=== PATIENT | female | born 1995 | race Caucasian/White ===

== ENCOUNTER 2018-01-20 12:06 | Emergency (ER) | payer BC, OTHER ==
[2018-01-20] MEDS ORDERED: METOCLOPRAMIDE HCL 10 MG TABLET PO ONE (13:37)
[2018-01-20 14:04] LABS: APPEARANCE,URINE SLIGHTLY-CLOUDY; BILIRUBIN,URINE NEGATIVE (NEGATIVE); COLOR,URINE YELLOW; GLUCOSE, URINE NEGATIVE (NEGATIVE); KETONES,URINE NEGATIVE (NEGATIVE); LEUKOCYTE ESTERASE,URINE TRACE (NEGATIVE); NITRITE,URINE NEGATIVE (NEGATIVE); PROTEIN,URINE NEGATIVE (NEGATIVE); URINE SPECIFIC GRAVITY 1.003; UROBILINOGEN,URINE NEGATIVE mg/dL (<2.0)
--- NOTE | 2018-01-20 14:08 | ER Document Report ---
ED General - General Chief Complaint: Flu Symptoms Stated Complaint: WEAKNESS Time Seen by Provider: 01/20/18 12:53 Mode of Arrival: Ambulatory Information source: Patient Notes: 22-year-old female presents with concerns for dehydration. Patient notes she drank excessively on Sunday and has been feeling nauseous ever since. Patient notes as a result she has not been eating or drinking well. Patient notes she is only vomited one time. Patient denies any abdominal pain denies any fevers or chills or any other life-threatening concerns TRAVEL OUTSIDE OF THE [place] IN LAST 30 DAYS: No - HPI Onset: Other - 3 day duration Onset/Duration: Persistent Quality of pain: No pain Severity: Mild Pain Level: Denies Associated symptoms: Nausea, Vomiting Exacerbated by: Denies Relieved by: Denies Similar symptoms previously: Yes Recently seen / treated by doctor: No - Related Data Allergies/Adverse Reactions: No Known Allergies Allergy (Verified 01/20/18 12:07) Past Medical History - Social History Smoking Status: Never Smoker Cigarette use (# per day): No Chew tobacco use (# tins/day): No Smoking Education Provided: No Family History: Reviewed & Not Pertinent Review of Systems - Review of Systems Notes: REVIEW OF SYSTEMS: CONSTITUTIONAL : Denies fever, chills, or sweats. Denies recent illness. EENT: Denies eye, ear, throat, or mouth pain or symptoms. Denies nasal or sinus congestion or discharge. Denies throat, tongue, or mouth swelling or difficulty swallowing. CARDIOVASCULAR: Denies chest pain. Denies palpitations or racing or irregular heart beat. Denies ankle edema. RESPIRATORY: Denies cough, cold, or chest congestion. Denies shortness of breath, difficulty breathing, or wheezing. GASTROINTESTINAL: Admits to nausea vomiting decreased appetite GENITOURINARY: Denies difficulty urinating, painful urination, burning, frequency, blood in urine, or discharge. FEMALE GENITOURINARY: Denies vaginal bleeding, heavy or abnormal periods, irregular periods. Denies vaginal discharge or odor. MUSCULOSKELETAL: Denies back or neck pain or stiffness. Denies joint pain or swelling. SKIN: Denies rash, lesions or sores. HEMATOLOGIC : Denies easy bruising or bleeding. LYMPHATIC: Denies swollen, enlarged glands. NEUROLOGICAL: Denies confusion or altered mental status. Denies passing out or loss of consciousness. Denies dizziness or lightheadedness. Denies headache. Denies weakness or paralysis or loss of use of either side. Denies problems with gait or speech. Denies sensory loss, numbness, or tingling. Denies seizures. PSYCHIATRIC: Denies anxiety or stress. Denies depression, suicidal ideation, or homicidal ideation. ALL OTHER SYSTEMS REVIEWED AND NEGATIVE. PHYSICAL EXAMINATION: GENERAL: Well-appearing, well-nourished and in no acute distress. HEAD: Atraumatic, normocephalic. EYES: Pupils equal round and reactive to light, extraocular movements intact, conjunctiva are normal. ENT: Nares patent, oropharynx clear without exudates. Moist mucous membranes. NECK: Normal range of motion, supple without lymphadenopathy LUNGS: Breath sounds clear to auscultation bilaterally and equal. No wheezes rales or rhonchi. HEART: Regular rate and rhythm without murmurs ABDOMEN: Soft, nontender, nondistended abdomen. No guarding, no rebound. No masses appreciated. Female : deferred Musculoskeletal: Normal range of motion, no pitting or edema. No cyanosis. NEUROLOGICAL: Cranial nerves grossly intact. Normal speech, normal gait. Normal sensory, motor exams PSYCH: Normal mood, normal affect. SKIN: Warm, Dry, normal turgor, no rashes or lesions noted. Dictation was performed using [email or web address] voice recognition software Physical Exam - Vital signs Vitals: Temp Pulse Resp BP Pulse Ox 98.7 F 84 18 127/82 H 98 01/20/18 12:14 01/20/18 12:14 01/20/18 12:14 01/20/18 12:14 01/20/18 12:14 Course - Re-evaluation Re-evalutation: 01/20/18 15:56 Patient's presentation is quite benign, vital signs are within normal limits, she looks well, I believe her nausea secondary to her alcohol use, she has no tenderness upon palpation, patient was given nausea control was able to orally hydrate. She overall looks well urinalysis noted no infectious process no and no ketones After performing a Medical Screening Examination, I estimate there is LOW risk for ACUTE APPENDICITIS, BOWEL OBSTRUCTION, ACUTE CHOLECYSTITIS, PERFORATED DIVERTICULITIS, INCARCERATED HERNIA, PANCREATITIS, PELVIC INFLAMMATORY DISEASE, PERFORATED ULCER, ECTOPIC , or TUBO- OVARIAN ABSCESS, thus I consider the discharge disposition reasonable. Also, there is no evidence or peritonitis, sepsis, or toxicity. I have reevaluated this patient multiple times and no significant life threatening changes are noted. The patient and I have discussed the diagnosis and risks, and we agree with discharging home with close follow-up with the understanding that symptoms and presentations can change. We also discussed returning to the Emergency Department immediately if new or worsening symptoms occur. We have discussed the symptoms which are most concerning (e.g., bloody stool, fever, changing or worsening pain, vomiting) that necessitate immediate return. - Vital Signs Vital signs: Temp Pulse Resp BP Pulse Ox 98.6 F 61 16 112/66 99 01/20/18 14:17 01/20/18 14:17 01/20/18 14:17 01/20/18 14:17 01/20/18 14:17 - Laboratory Laboratory results interpreted by me: 01/20/18 13:48 Ur Leukocyte Esterase TRACE H Discharge - Discharge Clinical Impression: Dehydration Nausea & vomiting Qualifiers: Vomiting type: unspecified Vomiting Intractability: non-intractable Qualified Code(s): R11.2 - Nausea with vomiting, unspecified Condition: Stable Disposition: HOME, SELF-CARE Instructions: Vomiting ([facility]) Prescriptions: Metoclopramide HCl [Reglan 10 mg Tablet] 1 - 2 tab PO ASDIR PRN #25 tablet PRN Reason:
[2018-01-20 14:19] VITALS: BP 112/66
== END 2018-01-20 14:32 | disposition home or self-care (01) ==
LOC: ER 12:06
DX: R11.2 Nausea with vomiting, unspecified (principal); E86.0 Dehydration; R63.0 Anorexia
CPT/HCPCS: 81001; 81025; 99283

== ENCOUNTER 2018-02-05 09:09 | Emergency (ER) | payer BC ==
[2018-02-05 09:14] VITALS: BP 111/85
[2018-02-05] MEDS ORDERED: DEXAMETHASONE SOD PHOS INJ 10 MG/1 ML VIAL IM ONE (10:03)
[2018-02-05] MEDS ORDERED: IBUPROFEN 800 MG TABLET PO ONE (10:04)
--- NOTE | 2018-02-05 10:07 | ER Document Report ---
ED ENT - General Chief Complaint: Sore Throat Stated Complaint: SORE THROAT Time Seen by Provider: 02/05/18 09:25 Mode of Arrival: Ambulatory Information source: Patient Notes: 23-year-old female presented ED for complaint of fever, runny nose, sore throat , cough, and congestion. She states she has been taken Tylenol. TRAVEL OUTSIDE OF THE [place] IN LAST 30 DAYS: No - HPI Patient complains to provider of: Nose problem, Throat problem Onset: Other Onset/Duration: Gradual Quality of pain: Achy Severity: Moderate Pain Level: 4 Context: Recent Illness Location of pain: Nose, Sinus, Throat Associated symptoms: Chills, Congestion, Cough, Fever, Runny nose, Sinus pain, Sinus drainage, Sore throat Similar symptoms previously: Yes Recently seen / treated by doctor: No - Related Data Allergies/Adverse Reactions: No Known Allergies Allergy (Verified 02/05/18 09:27) Past Medical History - General Information source: Patient - Social History Smoking Status: Current Every Day Smoker Cigarette use (# per day): Yes - Three fourths pack per day Chew tobacco use (# tins/day): No Smoking Education Provided: Yes - 4 minutes Frequency of alcohol use: Social Drug Abuse: None Occupation: Housekeeping Lives with: Family Family History: Arthritis, COPD, DM, Malignancy, Thyroid Disfunction. denies: CAD, CVA, Hyperlipidemia, Hypertension Patient has suicidal ideation: No Patient has homicidal ideation: No - Past Medical History Cardiac Medical History: Reports: None Pulmonary Medical History: Reports: None EENT Medical History: Reports: None Neurological Medical History: Reports: None Endocrine Medical History: Reports: None Renal/ Medical History: Reports: None Malignancy Medical History: Reports: None GI Medical History: Reports: None Musculoskeltal Medical History: Reports None Skin Medical History: Reports None Psychiatric Medical History: Reports: Hx Depression Traumatic Medical History: Reports: None Infectious Medical History: Reports: None Surgical Hx: Negative Past Surgical History: Reports: None - Immunizations Immunizations up to date: Yes Hx Diphtheria, Pertussis, Tetanus Vaccination: Yes Review of Systems - Review of Systems Constitutional: Chills, Fever, Recent illness EENT: Nose congestion, Nose discharge, Sinus pressure, Sinus discharge, Throat pain Cardiovascular: No symptoms reported Respiratory: Cough Gastrointestinal: No symptoms reported Genitourinary: No symptoms reported Female Genitourinary: No symptoms reported Musculoskeletal: No symptoms reported Skin: No symptoms reported Hematologic/Lymphatic: No symptoms reported Neurological/Psychological: No symptoms reported -: Yes All other systems reviewed and negative Physical Exam - Vital signs Vitals: Temp Pulse Resp BP Pulse Ox 99.9 F 116 H 14 111/85 97 02/05/18 09:13 02/05/18 09:13 02/05/18 09:13 02/05/18 09:13 02/05/18 09:13 Interpretation: Tachycardic - 104 - General General appearance: Appears well, Alert - HEENT Head: Normocephalic, Atraumatic Eyes: Normal Pupils: PERRL Ears: Normal External canal: Normal Tympanic membrane: Normal Sinus: Normal Nasal: Purulent discharge, Swelling Mouth/Lips: Normal Mucous membranes: Normal Pharynx: Post nasal drainage Neck: Normal - Respiratory Respiratory status: No respiratory distress Chest status: Nontender Breath sounds: Nonproductive cough. No: Rales, Rhonchi, Stridor, Wheezing Chest palpation: Normal - Cardiovascular Rhythm: Regular Heart sounds: Normal auscultation Murmur: No - Abdominal Inspection: Normal Distension: No distension Bowel sounds: Normal Tenderness: Nontender Organomegaly: No organomegaly - Back Back: Normal, Nontender - Extremities General upper extremity: Normal inspection, Nontender, Normal color, Normal ROM , Normal temperature General lower extremity: Normal inspection, Nontender, Normal color, Normal ROM , Normal temperature, Normal weight bearing. No: Taylor's sign - Neurological Neuro grossly intact: Yes Cognition: Normal Orientation: AAOx4 Marshall Coma Scale Eye Opening: Spontaneous Marshall Coma Scale Verbal: Oriented Marshall Coma Scale Motor: Obeys Commands [place] Coma Scale Total: 15 Speech: Normal Motor strength normal: LUE, RUE, LLE, RLE Sensory: Normal - Psychological Associated symptoms: Normal affect, Normal mood - Skin Skin Temperature: Warm Skin Moisture: Dry Skin Color: Normal Course - Re-evaluation Re-evalutation: 02/05/18 22:00 Assessment consistent with an upper respiratory infection. Patient smokes three fourths pack a day. Temp was 99 pulse was 104. Drip culture was negative. Lungs clear to auscultation respirations regular and even. Patient able to speak in full sentences. Patient was discharged home with instructions on upper respiratory infection treatments. Patient to follow-up with her primary doctor. - Vital Signs Vital signs: Temp Pulse Resp BP Pulse Ox 99.9 F 116 H 14 111/85 97 02/05/18 09:13 02/05/18 09:13 02/05/18 09:13 02/05/18 09:13 02/05/18 09:13 Discharge - Discharge Clinical Impression: Viral sore throat URI (upper respiratory infection) Qualifiers: URI type: unspecified URI Qualified Code(s): J06.9 - Acute upper respiratory infection, unspecified Condition: Stable Disposition: HOME, SELF-CARE Instructions: Family Physicians / Practices Additional Instructions: UPPER RESPIRATORY ILLNESS: You have a viral infection of the respiratory passages -- a "cold." This common infection causes nasal congestion, drainage, and often sore throat and cough. It is highly contagious. The disease usually lasts about 10 to 14 days. There is no "cure" for the viral infection -- it must run its course. If there is a complication, such as bacterial infection in the nose, sinuses, middle ear, or bronchial tubes, antibiotics may be required. The antibiotics won't affect the virus. Drink plenty of fluids. A humidifier may help. An expectorant medication or decongestant may make you more comfortable. Use acetaminophen or ibuprofen for fever or aches. See the doctor if fever persists over two days, if there is any significant worsening of your symptoms, or if you simply fail to improve as expected. SORE THROAT: Sore throats may be caused by viruses, bacteria, or fungi. Most are due to a virus, and must get better on their own. Bacterial sore throats, particularly those due to "strep," need treatment with antibiotics. If an antibiotic is prescribed, be sure to take the medication for a full 10 days. Failure to take the antibiotic can result in complications such as rheumatic fever. Sometimes, an injection of antibiotics is given instead of pills or liquid. This single "shot" is equal in effectiveness to the oral medication. To relieve symptoms, take acetaminophen for pain. Sip clear liquids frequently, or eat popsicles or ice chips. Anesthetic sprays or lozenges may help. Make sure the air in the room is not too dry. Avoid using decongestants or antihistamines. Call the doctor if there is no improvement in two days, or if you have difficulty breathing, increasing throat pain, high fever, rash, or frequent vomiting. STEROID MEDICATION: You have been given a medicine of the cortisone/steroid class. This medication is used to control inflammation or allergy. It is usually only given for a short period of time, until the acute process subsides. There are usually no side effects from short-term use of cortisone-like medications. Some persons feel an increased sense of well-being and are not sleepy at bedtime. Long-term use of cortisone medications is best avoided, unless required for a severe condition. If your condition does not remit, or relapses after the course of corticosteroid medication, you should consult your physician. DECONGESTANT MEDICATION: A decongestant medicine has been prescribed. Often this medicine is combined in the same tablet with an antihistamine or expectorant. This type of medicine is helpful in treating a bad cold or sinus condition, as well as in treatment of the nasal congestion of hay fever. It is not of much benefit for lung infections. Decongestant medicines are related to stimulants. They can cause an increase in blood pressure and heart rate. Persons with heart disease and high blood pressure should not take decongestants without discussing this with the physician. If you develop palpitations, chest pain, headache, or tremors, stop the medicine and consult your physician. COUGH-SUPPRESSANT & EXPECTORANT MEDICATION: You are to use a cough medication as needed for relief of symptoms. This medicine is a combination of an expectorant (to make the mucous thinner and more easily "coughed up") and a cough suppressant (to reduce the frequency of coughing). The cough-suppressant medicine is related to narcotics. You may experience mild nausea and sleepiness. Some patients who are very sensitive to narcotics may have stomach pain from this medicine. Taking the medicine with food reduces these side effects. Do not drive or work with machinery until you know how this medicine affects you. The expectorant should have no side effects. Iodine-containing expectorants (such as organidin) should not be taken by persons with active thyroid disease unless approved by your doctor. Call the doctor if you develop shortness of breath, hives, rash, itching, lightheadedness, or severe nausea and vomiting. USE OF ACETAMINOPHEN (Tylenol): Acetaminophen may be taken for pain relief or fever control. It's much safer than aspirin, offering a wider range of "safe" dosages. It is safe during . Some brand names are Tylenol, Panadol, Datril, Anacin 3, Tempra, and Liquiprin. Acetaminophen can be repeated every four hours. The following are maximum recommended dosages: >89 pounds or adults 650 mg to 900 mg Acetaminophen can be repeated every four hours. Maximum dose not to exceed 4000 mg a day. SMOKING: If you smoke, you should stop smoking. The tar and chemicals in cigarette smoke are harmful. Smoking has been shown to cause: emphysema chronic bronchitis lung cancer mouth and throat cancer stomach and pancreas cancer premature aging defects In addition, smoking increases ear and lung infections in children of smokers. FOLLOW-UP CARE: If you have been referred to a physician for follow-up care, call the physician s office for an appointment as you were instructed or within the next two days. If you experience worsening or a significant change in your symptoms, notify the physician immediately or return to the Emergency Department at any time for re-evaluation. Forms: Smoking Cessation Education, Return to Work
== END 2018-02-05 10:19 | disposition home or self-care (01) ==
LOC: ER 09:09
DX: J02.8 Acute pharyngitis due to other specified organisms (principal); B97.89 Other viral agents as the cause of diseases classified elsewhere; R50.9 Fever, unspecified; R05 Cough; R09.89 Other specified symptoms and signs involving the circulatory and respiratory systems; J34.89 Other specified disorders of nose and nasal sinuses; F17.210 Nicotine dependence, cigarettes, uncomplicated; Z71.6 Tobacco abuse counseling
CPT/HCPCS: 99406; 99283; 96372; 87070; 87880; 87077; J1100

== ENCOUNTER 2018-03-06 08:39 | Emergency (ER) | payer BC ==
[2018-03-06] MEDS ORDERED: ACETAMINOPHEN 325 MG TABLET PO ONE (08:59)
[2018-03-06] MEDS: NORMAL SALINE 1000 ML 1,000 ML IV PRN ×2 (09:18→09:19)
[2018-03-06 09:47] LABS: ANION GAP 10 (5-19); BLOOD UREA NITROGEN 9 mg/dL (7-20); CALCIUM 9.1 mg/dL (8.4-10.2); CARBON DIOXIDE 23 mmol/L (22-30); CHLORIDE 108 mmol/L (98-107); GLUCOSE 114 mg/dL (75-110); POTASSIUM 4.7 mmol/L (3.6-5.0); SODIUM 141.2 mmol/L (137-145)
[2018-03-06 09:51] LABS: ABSOLUTE LYMPHOCYTES (AUTO) 0.7 10^3/uL (0.5-4.7); ABSOLUTE MONOCYTES (AUTO) 1.2 10^3/uL (0.1-1.4); ABSOLUTE NEUT (AUTO) 12.7 10^3/uL (1.7-8.2); BASOPHILS % (AUTO) 0.2 % (0-2); EOSINOPHILS % (AUTO) 0.1 % (0-6); HEMATOCRIT 40.4 % (36.0-47.0); LYMPHOCYTES % (AUTO) 5.1 % (13-45); MEAN CORPUSCULAR HEMOGLOBIN 27.2 pg (27.0-33.4); MEAN CORPUSCULAR HGB CONC 32.1 g/dL (32.0-36.0); MEAN CORPUSCULAR VOLUME 85 fl (80-97); MONOCYTES % (AUTO) 8.2 % (3-13); PLATELET COUNT 231 10^3/uL (150-450); RED BLOOD COUNT 4.77 10^6/uL (3.72-5.28); RED CELL DISTRIBUTION WIDTH 15.3 % (11.5-14.0); SEGMENTED NEUTROPHILS % (AUTO) 86.4 % (42-78); TOTAL CELLS COUNTED % (AUTO) 100 %; WHITE BLOOD COUNT 14.7 10^3/uL (4.0-10.5)
[2018-03-06 10:31] LABS: BACTERIA (WET MOUNT) 3+ BACTERIA SEEN; RBCS (WET MOUNT) NO RBCS SEEN; T.VAGINALIS (WET MOUNT) NO TRICHOMONAS SEEN; WBCS (WET MOUNT) 1+ WBCS SEEN; YEAST (WET MOUNT) NO YEAST SEEN
[2018-03-06 10:45] LABS: APPEARANCE,URINE SLIGHTLY-CLOUDY; BILIRUBIN,URINE NEGATIVE (NEGATIVE); COLOR,URINE YELLOW; GLUCOSE, URINE NEGATIVE (NEGATIVE); KETONES,URINE NEGATIVE (NEGATIVE); LEUKOCYTE ESTERASE,URINE LARGE (NEGATIVE); NITRITE,URINE NEGATIVE (NEGATIVE); PROTEIN,URINE NEGATIVE (NEGATIVE)
[2018-03-06] MEDS ORDERED: CEFTRIAXONE 1 GM/D5W RTU 1 GM/50 ML RTUPB IV ONE (11:03)
[2018-03-06] MEDS ORDERED: METRONIDAZOLE 500 MG TABLET PO ONE (11:04)
[2018-03-06] MEDS ORDERED: AZITHROMYCIN 1 GM SUSP PACKET PO ONE (11:04)
--- NOTE | 2018-03-06 11:30 | ER Document Report ---
ED General - General Chief Complaint: Vaginal Discharge Stated Complaint: SORE THROAT Time Seen by Provider: 03/06/18 08:59 TRAVEL OUTSIDE OF THE [place] IN LAST 30 DAYS: No - HPI Patient complains to provider of: Fevers muscle aches vaginal discharge sore throat Notes: Patient coming in for the above-stated complaints. Patient states she is sexually active with multiple partners. Patient denies having socially transmitted diseases in the past. Denies any normal pain mother states some dysuria. Patient states she has not been taking Tylenol Motrin because her throat hurts too much. Denies any recent travel denies any recent antibiotics. Patient resting comfortably upon my evaluation - Related Data Allergies/Adverse Reactions: No Known Allergies Allergy (Verified 03/06/18 09:25) Past Medical History - Social History Smoking Status: Current Every Day Smoker Frequency of alcohol use: None Drug Abuse: None Family History: Arthritis, COPD, DM, Malignancy, Thyroid Disfunction. denies: CAD, CVA, Hyperlipidemia, Hypertension Patient has suicidal ideation: No Patient has homicidal ideation: No Renal/ Medical History: Denies: Hx Peritoneal Dialysis Psychiatric Medical History: Reports: Hx Depression - Immunizations Immunizations up to date: Yes Hx Diphtheria, Pertussis, Tetanus Vaccination: Yes Review of Systems - Review of Systems Constitutional: Fever, Other - Myalgias EENT: No symptoms reported Cardiovascular: No symptoms reported Respiratory: No symptoms reported Gastrointestinal: No symptoms reported Genitourinary: No symptoms reported Female Genitourinary: Vaginal discharge Musculoskeletal: No symptoms reported Skin: No symptoms reported Hematologic/Lymphatic: No symptoms reported Neurological/Psychological: No symptoms reported -: Yes All other systems reviewed and negative Physical Exam - Vital signs Vitals: Temp Pulse Resp BP Pulse Ox 103.1 F H 133 H 16 126/72 H 96 03/06/18 08:43 03/06/18 08:43 03/06/18 08:43 03/06/18 08:43 03/06/18 08:43 Interpretation: Tachycardic, Febrile - General General appearance: Appears well, Alert - HEENT Head: Normocephalic, Atraumatic Eyes: Normal Conjunctiva: Normal Cornea: Normal Pupils: PERRL Ears: Normal External canal: Normal Tympanic membrane: Normal Sinus: Normal Nasal: Normal Mouth/Lips: Normal Pharynx: Erythema Neck: Normal - Respiratory Respiratory status: No respiratory distress Chest status: Nontender Breath sounds: Normal Chest palpation: Normal - Cardiovascular Rhythm: Regular Heart sounds: Normal auscultation Murmur: No - Abdominal Inspection: Normal Distension: No distension Bowel sounds: Normal Tenderness: Nontender Organomegaly: No organomegaly - Genitourinary External exam: Normal Speculum exam: Vaginal discharge - White moderate amount Vaginal bleeding: None Bimanuel exam: Normal. No: Cervical motion tender, Adnexal mass, Adnexal tenderness - Back Back: Normal, Nontender - Extremities General upper extremity: Normal inspection, Nontender, Normal color, Normal ROM , Normal temperature General lower extremity: Normal inspection, Nontender, Normal color, Normal ROM , Normal temperature, Normal weight bearing. No: Taylor's sign - Neurological Neuro grossly intact: Yes Cognition: Normal Orientation: AAOx4 [place] Coma Scale Eye Opening: Spontaneous [place] Coma Scale Verbal: Oriented [place] Coma Scale Motor: Obeys Commands [place] Coma Scale Total: 15 Speech: Normal Motor strength normal: LUE, RUE, LLE, RLE Sensory: Normal - Psychological Associated symptoms: Normal affect, Normal mood - Skin Skin Temperature: Warm Skin Moisture: Dry Skin Color: Normal Course - Re-evaluation Re-evalutation: 03/06/18 14:26 Patient with fever slight leukocytosis with vaginal discharge showing bacterial vaginosis. Patient requested treatment for gonorrhea chlamydia therefore we did Rocephin and Zithromax and 2 g of Flagyl for treatment. Heart rate improved after IV fluids along with fever. Patient feeling better concerning is a patient does have large leukocyte esterase with dysuria will start the patient on Macrobid urine culture was sent. Patient otherwise is negative for mono negative for strep no signs of any other concerning etiology patient will be discharged home - Vital Signs Vital signs: Temp Pulse Resp BP Pulse Ox 103.1 F H 133 H 22 H 110/66 98 03/06/18 08:43 03/06/18 08:43 03/06/18 12:01 03/06/18 12:01 03/06/18 12:01 - Laboratory Result Diagrams: 03/06/18 09:28 03/06/18 09:20 Laboratory results interpreted by me: 03/06/18 03/06/18 03/06/18 09:20 09:28 10:18 WBC 14.7 H RDW 15.3 H Seg Neutrophils % 86.4 H Lymphocytes % 5.1 L Absolute Neutrophils 12.7 H Chloride 108 H Glucose 114 H Urine Urobilinogen 4.0 H Ur Leukocyte Esterase LARGE H Discharge - Discharge Clinical Impression: Bacterial vaginosis, Dehydration, Sore throat Fever Qualifiers: Fever type: unspecified Qualified Code(s): R50.9 - Fever, unspecified UTI (urinary tract infection) Qualifiers: Urinary tract infection type: site unspecified Hematuria presence: without hematuria Qualified Code(s): N39.0 - Urinary tract infection, site not specified Condition: Good Disposition: HOME, SELF-CARE Instructions: Nitrofurantoin ([facility]), Sore Throat ([facility]), Urinary Tract Infection ([facility]), Vaginosis, Bacterial ([facility]) Additional Instructions: Your evaluation today 2 signs of dehydration. Your throat swabs returned negative for strep and mono. Laboratory studies show signs of urinary tract infection along with bacterial vaginosis. Your gonorrhea chlamydia testing is currently pending however we did treat you here with Rocephin and also azithromycin. I highly recommend abstaining from sex for the next 2 weeks. Continues to take Tylenol and/or Motrin for fever and pain control. Return to ER if symptoms worse. Take Macrobid as prescribed for urinary tract infection. Prescriptions: Ibuprofen [Motrin 600 Mg Tablet] 600 mg PO TID #30 tablet Nitrofurantoin Macrocrystal [Macrodantin] 100 mg PO BID #14 capsule Ondansetron [Zofran Odt] 4 mg PO Q6 PRN #30 tab.rapdis PRN Reason: For Nausea/Vomiting Forms: Return to Work
[2018-03-06 12:03] LABS: CHLAM PCR NOT DETECTED (NOT DETECT); GON PCR NOT DETECTED (NOT DETECT)
[2018-03-06 12:17] VITALS: BP 110/66
[2018-03-06] MEDS ORDERED: CEFTRIAXONE SODIUM 1,000 MG in NORMAL SALINE 100 ML IV ONE (12:30)
== END 2018-03-06 12:17 | disposition home or self-care (01) ==
LOC: ER 08:39
DX: N39.0 Urinary tract infection, site not specified (principal); N76.0 Acute vaginitis; B96.89 Other specified bacterial agents as the cause of diseases classified elsewhere; E86.0 Dehydration; R50.9 Fever, unspecified; J02.9 Acute pharyngitis, unspecified; M79.1 Myalgia; F17.200 Nicotine dependence, unspecified, uncomplicated
CPT/HCPCS: 99283; 96361; 96365; 36415; 87070; 87086; 87210; 87880; 85025; 81025; 86308; 80048; 81001; 87491; 87591; Q0144; J0696; J7030

== ENCOUNTER 2018-12-19 18:54 | Emergency (ER) | payer SELFPAY ==
--- NOTE | 2018-12-19 21:51 | ER Document Report ---
ED General - General Chief Complaint: Suicidal Ideation Stated Complaint: PSYCH EVAL Time Seen by Provider: 12/19/18 20:30 Primary Care Provider: [facility] [Provider Group] - Follow up as needed SINCERE MUNIZ MD [NO LOCAL MD] - Follow up as needed Notes: This is a 23-year-old female patient to the emergency department for evaluation of anxiety and depression. Patient denies any active suicidal ideation. Patient states that she has had long-standing history of anxiety. Recently moved back home to live with her mom as she was kicked out of her house in [place]. Has 2 children. Has struggled with anxiety since she was a child. Currently not on medications. Does not have any thoughts at this time of wanting to hurt herself but sometimes feels that life is not worth living just due to all the anxiety. She has physical symptoms which are tachycardia, palm sweating and facial flushing. Beginning to have more [place] phobia. Feels like most of her symptoms come out when she is around people. All she wants to do is sleep all day because it is safer than going out in public. TRAVEL OUTSIDE OF THE [place] IN LAST 30 DAYS: No - HPI Severity: Moderate - Related Data Allergies/Adverse Reactions: No Known Allergies Allergy (Verified 03/06/18 09:25) Past Medical History - General Information source: Patient - Social History Smoking Status: Current Every Day Smoker Frequency of alcohol use: None Drug Abuse: None Family History: Arthritis, COPD, DM, Malignancy, Thyroid Disfunction. denies: CAD, CVA, Hyperlipidemia, Hypertension Patient has suicidal ideation: No Patient has homicidal ideation: No Renal/ Medical History: Denies: Hx Peritoneal Dialysis Psychiatric Medical History: Reports: Hx Anxiety, Hx Depression - Immunizations Immunizations up to date: Yes Hx Diphtheria, Pertussis, Tetanus Vaccination: Yes Review of Systems - Review of Systems Notes: Constitutional: denies: Chills, Diaphoresis, Fever, Malaise, Weakness EENT: denies: Eye discharge, Blurred vision, Tearing, Double vision, Nose congestion, Nose discharge, Throat swelling, Mouth pain Cardiovascular: denies: Palpitations, Heart racing, Orthopnea, Dyspnea, Chest pain Respiratory: denies: Cough, Hurts to breathe, Wheezing, Shortness of breath Gastrointestinal: denies: Abdominal pain, Diarrhea, Nausea, Vomiting, Black stools, bright red blood in stool Genitourinary: denies: Burning, Dysuria, Discharge, Frequency, Flank pain, Hematuria Musculoskeletal: denies: Joint pain, Joint swelling, Muscle pain, Muscle stiffness, back pain Hematologic/Lymphatic: denies: Anemia, Easy bleeding, Easy bruising, Blood clots Neurological/Psychological: denies: Confusion, Dementia, +Depression, Loss of consciousness, + anxiety Skin: No lesions, no masses, no skin breakdown, no abscesses Physical Exam - Vital signs Vitals: Temp Pulse Resp BP Pulse Ox 98.6 F 116 H 14 122/76 100 12/19/18 19:03 12/19/18 19:03 12/19/18 19:03 12/19/18 19:03 12/19/18 19:03 Interpretation: Normal - General General appearance: Appears well, Alert - HEENT Head: Normocephalic, Atraumatic Eyes: Normal Pupils: PERRL - Respiratory Respiratory status: No respiratory distress Chest status: Nontender Breath sounds: Normal Chest palpation: Normal - Cardiovascular Rhythm: Regular Heart sounds: Normal auscultation Murmur: No - Abdominal Inspection: Normal Distension: No distension Bowel sounds: Normal Tenderness: Nontender Organomegaly: No organomegaly - Back Back: Normal, Nontender - Extremities General upper extremity: Normal inspection, Nontender, Normal color, Normal ROM, Normal temperature General lower extremity: Normal inspection, Nontender, Normal color, Normal ROM, Normal temperature, Normal weight bearing. No: Taylor's sign - Neurological Neuro grossly intact: Yes Cognition: Normal Orientation: AAOx4 [place] Coma Scale Eye Opening: Spontaneous [place] Coma Scale Verbal: Oriented [place] Coma Scale Motor: Obeys Commands [place] Coma Scale Total: 15 Speech: Normal Motor strength normal: LUE, RUE, LLE, RLE Sensory: Normal - Psychological Associated symptoms: Normal affect, Normal mood - Skin Skin Temperature: Warm Skin Moisture: Dry Skin Color: Normal Course - Re-evaluation Re-evalutation: 12/19/18 22:59 Laboratory 12/19/18 12/19/18 12/19/18 20:30 20:30 20:30 WBC 11.0 H RBC 4.94 Hgb 14.3 Hct 42.6 MCV 86 MCH 29.0 MCHC 33.7 RDW 13.8 Plt Count 328 Seg Neutrophils % 75.0 Lymphocytes % 18.4 Monocytes % 5.8 Eosinophils % 0.4 Basophils % 0.4 Absolute Neutrophils 8.2 Absolute Lymphocytes 2.0 Absolute Monocytes 0.6 Absolute Eosinophils 0.0 Absolute Basophils 0.0 Sodium 143.3 Potassium 4.8 Chloride 103 Carbon Dioxide 29 Anion Gap 11 BUN 8 Creatinine 0.62 Est GFR ( Amer) > 60 Est GFR (Non-Af Amer) > 60 Glucose 92 Calcium 9.9 Total Bilirubin 0.5 Direct Bilirubin 0.3 Neonat Total Bilirubin Not Reportable Neonat Direct Bilirubin Not Reportable Neonat Indirect Bili Not Reportable AST 18 ALT 9 Alkaline Phosphatase 118 Total Protein 8.4 H Albumin 4.8 TSH Free T4 Free T3 pg/mL Serum HCG, Qual NEGATIVE Urine Color Urine Appearance Urine pH Ur Specific [place] Urine Protein Urine Glucose (UA) Urine Ketones Urine Blood Urine Nitrite Urine Bilirubin Urine Urobilinogen Ur Leukocyte Esterase Urine WBC (Auto) Urine RBC (Auto) Urine Bacteria (Auto) Squamous Epi Cells Auto Urine Mucus (Auto) Urine Ascorbic Acid Salicylates < 1.0 L Urine Opiates Screen Urine Methadone Screen Acetaminophen < 10 L Ur Barbiturates Screen Ur Phencyclidine Scrn Ur Amphetamines Screen U Benzodiazepines Scrn Urine Cocaine Screen U Marijuana (THC) Screen Serum Alcohol < 10 12/19/18 12/19/18 12/19/18 20:30 20:30 20:30 WBC RBC Hgb Hct MCV MCH MCHC RDW Plt Count Seg Neutrophils % Lymphocytes % Monocytes % Eosinophils % Basophils % Absolute Neutrophils Absolute Lymphocytes Absolute Monocytes Absolute Eosinophils Absolute Basophils Sodium Potassium Chloride Carbon Dioxide Anion Gap BUN Creatinine Est GFR ( Amer) Est GFR (Non-Af Amer) Glucose Calcium Total Bilirubin Direct Bilirubin Neonat Total Bilirubin Neonat Direct Bilirubin Neonat Indirect Bili AST ALT Alkaline Phosphatase Total Protein Albumin TSH 1.28 Free T4 1.02 Free T3 pg/mL 3.72 Serum HCG, Qual Urine Color COLORLESS Urine Appearance CLEAR Urine pH 8.0 Ur Specific [place] 1.004 Urine Protein NEGATIVE Urine Glucose (UA) NEGATIVE Urine Ketones NEGATIVE Urine Blood NEGATIVE Urine Nitrite NEGATIVE Urine Bilirubin NEGATIVE Urine Urobilinogen NEGATIVE Ur Leukocyte Esterase TRACE H Urine WBC (Auto) 1 Urine RBC (Auto) 0 Urine Bacteria (Auto) 2+ Squamous Epi Cells Auto 1 Urine Mucus (Auto) RARE Urine Ascorbic Acid NEGATIVE Salicylates Urine Opiates Screen NEGATIVE Urine Methadone Screen NEGATIVE Acetaminophen Ur Barbiturates Screen NEGATIVE Ur Phencyclidine Scrn NEGATIVE Ur Amphetamines Screen NEGATIVE U Benzodiazepines Scrn NEGATIVE Urine Cocaine Screen NEGATIVE U Marijuana (THC) Screen NEGATIVE Serum Alcohol 12/19/18 23:00 This is a 23-year-old female no acute distress with some anxiety disorder and depression. She has struggled with this for most of her life. We had a long discussion with regards to her condition. At this time most of her anxiety stems from her physical manifestations of her anxiety which includes tachycardia and blushing. I have explained to her how a beta-jaqueline can sometimes help. This will help to control some of her physical symptoms and may help to suad viate the subsequent anxiety symptoms. She is also suffering some depression which coincides with her anxiety. She has been on psychiatric medications in the past. She has tried BuSpar but it seemed to make her anxiety worse. More than likely if this is true. I do not believe she is suicidal. She has no active suicide plan. She has no passive suicidal ideation she just feels like at times when the anxiety is so bad that was the point in living. She has a known recent stressor. Has moved here to live with her mom and her children are in [place]. Recent divorce. Obvious stressors in her life. Does have access to healthcare. Patient would like to go home. Mother is comfortable with this as well. Will DC in stable condition and recommend outpatient follow-up. - Vital Signs Vital signs: Temp Pulse Resp BP Pulse Ox 98.2 F 106 H 20 110/73 100 12/19/18 23:29 12/19/18 23:29 12/19/18 23:29 12/19/18 23:29 12/19/18 23:29 - Laboratory Result Diagrams: 12/19/18 20:30 12/19/18 20:30 Laboratory results interpreted by me: 12/19/18 12/19/18 12/19/18 20:30 20:30 20:30 WBC 11.0 H Total Protein 8.4 H Ur Leukocyte Esterase TRACE H Salicylates < 1.0 L Acetaminophen < 10 L - EKG Interpretation by Ma EKG shows normal: Sinus rhythm, Chapman, Intervals, QRS Complexes, ST-T Waves Discharge - Discharge Clinical Impression: Anxiety Depression Qualifiers: Depression Type: unspecified Qualified Code(s): F32.9 - Major depressive disorder, single episode, unspecified Condition: Good Disposition: HOME, SELF-CARE Instructions: Anxiety ([facility]), Beta Blockers ([facility]), Depression ([facility]) Prescriptions: Clonazepam 0.5 mg PO QHS 30 Days #30 tablet Propranolol HCl [Inderal 20 mg Tablet] 20 mg PO Q12 PRN 30 Days #60 tab PRN Reason: Referrals: SINCERE MUNIZ MD [NO LOCAL MD] - Follow up as needed [facility] [Provider Group] - Follow up as needed
[2018-12-19 22:00] LABS: ABSOLUTE MONOCYTES (AUTO) 0.6 10^3/uL (0.1-1.4); ABSOLUTE NEUT (AUTO) 8.2 10^3/uL (1.7-8.2); BASOPHILS % (AUTO) 0.4 % (0-2); EOSINOPHILS % (AUTO) 0.4 % (0-6); HEMATOCRIT 42.6 % (36.0-47.0); HEMOGLOBIN 14.3 g/dL (12.0-15.5); LYMPHOCYTES % (AUTO) 18.4 % (13-45); MEAN CORPUSCULAR HGB CONC 33.7 g/dL (32.0-36.0); MEAN CORPUSCULAR VOLUME 86 fl (80-97); MONOCYTES % (AUTO) 5.8 % (3-13); PLATELET COUNT 328 10^3/uL (150-450); RED BLOOD COUNT 4.94 10^6/uL (3.72-5.28); RED CELL DISTRIBUTION WIDTH 13.8 % (11.5-14.0); TOTAL CELLS COUNTED % (AUTO) 100 %
[2018-12-19 22:04] LABS: APPEARANCE,URINE CLEAR; BILIRUBIN,URINE NEGATIVE (NEGATIVE); COLOR,URINE COLORLESS; GLUCOSE, URINE NEGATIVE (NEGATIVE); KETONES,URINE NEGATIVE (NEGATIVE); LEUKOCYTE ESTERASE,URINE TRACE (NEGATIVE); NITRITE,URINE NEGATIVE (NEGATIVE); PROTEIN,URINE NEGATIVE (NEGATIVE); URINE SPECIFIC GRAVITY 1.004; UROBILINOGEN,URINE NEGATIVE mg/dL (<2.0)
[2018-12-19 22:06] LABS: ALANINE AMINOTRANSFERASE 9 U/L (9-52); ALBUMIN 4.8 g/dL (3.5-5.0); ALKALINE PHOSPHATASE 118 U/L (38-126); ANION GAP 11 (5-19); ASPARTATE AMINO TRANSFERASE 18 U/L (14-36); BILIRUBIN,DIRECT 0.3 mg/dL (0.0-0.4); BILIRUBIN,TOTAL 0.5 mg/dL (0.2-1.3); BLOOD UREA NITROGEN 8 mg/dL (7-20); CALCIUM 9.9 mg/dL (8.4-10.2); CARBON DIOXIDE 29 mmol/L (22-30); CHLORIDE 103 mmol/L (98-107); GLUCOSE 92 mg/dL (75-110); POTASSIUM 4.8 mmol/L (3.6-5.0); SODIUM 143.3 mmol/L (137-145); TOTAL PROTEIN 8.4 g/dL (6.3-8.2)
[2018-12-19 22:07] LABS: ACETAMINOPHEN < 10 ug/mL (10-30); ALCOHOL < 10 mg/dL (NONE DETECTED); SALICYLATE < 1.0 mg/dL (2.0-20.0)
[2018-12-19 22:17] LABS: URINE AMPHETAMINES SCREEN NEGATIVE; URINE BARBITURATES SCREEN NEGATIVE; URINE BENZODIAZEPINES SCREEN NEGATIVE; URINE COCAINE SCREEN NEGATIVE; URINE MARIJUANA (THC) SCREEN NEGATIVE; URINE METHADONE SCREEN NEGATIVE; URINE PHENCYCLIDINE SCREEN NEGATIVE
[2018-12-19 22:22] LABS: FREE T3 3.72 pg/mL (2.77-5.27); FREE T4 (FREE THYROXINE) 1.02 ng/dL (0.78-2.19)
[2018-12-19 22:36] LABS: THYROID STIMULATING HORMONE 1.28 uIU/mL (0.47-4.68)
[2018-12-19] MEDS ORDERED: CLONAZEPAM 1 MG TABLET PO ONE (23:05)
[2018-12-19 23:52] VITALS: BP 110/73
--- NOTE | 2018-12-20 08:01 | EKG REPORT ---
SEVERITY:- NORMAL ECG - SINUS RHYTHM : Confirmed by: Fareed Thompson MD 20-Dec-2018 08:00:27
== END 2018-12-19 23:52 | disposition home or self-care (01) ==
LOC: ER 18:54
DX: F41.9 Anxiety disorder, unspecified (principal); F32.9 Major depressive disorder, single episode, unspecified; R00.0 Tachycardia, unspecified; R61 Generalized hyperhidrosis; R23.2 Flushing; F17.200 Nicotine dependence, unspecified, uncomplicated; Z63.5 Disruption of family by separation and divorce
CPT/HCPCS: 36415; 80053; 80307; 81001; 84439; 84443; 84481; 84703; 85025; 93005; 93010; 99285

== ENCOUNTER 2018-12-22 16:07 | Emergency (ER) | payer MEDICAID ==
[2018-12-22 17:03] LABS: BACTERIA (WET MOUNT) 3+ BACTERIA SEEN; EPITHELIALS (WET MOUNT) 3+ EPITHELIALS SEEN; RBCS (WET MOUNT) FEW RBCS SEEN; T.VAGINALIS (WET MOUNT) NO TRICHOMONAS SEEN; WBCS (WET MOUNT) 2+ WBCS SEEN; YEAST (WET MOUNT) NO YEAST SEEN
[2018-12-22 17:04] LABS: APPEARANCE,URINE CLEAR; BILIRUBIN,URINE NEGATIVE (NEGATIVE); COLOR,URINE STRAW; GLUCOSE, URINE NEGATIVE (NEGATIVE); KETONES,URINE NEGATIVE (NEGATIVE); LEUKOCYTE ESTERASE,URINE NEGATIVE (NEGATIVE); NITRITE,URINE NEGATIVE (NEGATIVE); PROTEIN,URINE NEGATIVE (NEGATIVE); URINE SPECIFIC GRAVITY 1.005; UROBILINOGEN,URINE NEGATIVE mg/dL (<2.0)
[2018-12-22] MEDS ORDERED: AZITHROMYCIN 250 MG TABLET PO ONE (17:18)
[2018-12-22] MEDS ORDERED: METRONIDAZOLE 500 MG TABLET PO ONE (17:18)
[2018-12-22] MEDS ORDERED: CEFTRIAXONE INJ 250 MG VIAL IM ONE (17:18)
[2018-12-22] MEDS ORDERED: LIDOCAINE 1% INJ-PF (10 MG/ML) 30 ML SDV INJ ONE (17:18)
--- NOTE | 2018-12-22 17:22 | ER Document Report ---
ED GI/ - General Chief Complaint: Abdominal Cramping Stated Complaint: FEVER Time Seen by Provider: 12/22/18 16:20 Primary Care Provider: [facility] [Provider Group] - Follow up as needed Mode of Arrival: Ambulatory Information source: Patient Notes: 23-year-old female presents to ED for complaint of lower abdominal pain times 3 weeks. She states that her recent sexual partner told her that she he has chlamydia and he has a girlfriend. She states she has had a fever up to as much is 101 off and on for the last 3 weeks. She states maybe once or twice a week. She states yesterday she started with a scratchy throat and a stuffy nose. She states she has never been diagnosed with a STD in the past. Patient is alert oriented respirations regular and unlabored speaking in full sentences. She has no acute symptoms at this time. TRAVEL OUTSIDE OF THE [place] IN LAST 30 DAYS: No - HPI Patient complains to provider of: Pelvic pain - Lower pelvic cramping off and on for the last 3 weeks, Other - Stuffy nose and scratchy throat started yesterday, fever once or twice a week for the last 3 weeks up to is much is 101 Onset: Other Timing/Duration: Intermittent - 3 weeks Quality of pain: Achy, Cramping Severity at maximum: Moderate Severity in ED: Moderate Pain Level: 3 Location: Pelvis Vaginal bleeding (Compared to normal period): None Sexual history: Unprotected intercourse - States her most recent partner told her that he has chlamydia Associated symptoms: Vaginal discharge, Other - Pelvic cramping Exacerbated by: Denies Relieved by: Denies Similar symptoms previously: No Recently seen / treated by doctor: No - Related Data Allergies/Adverse Reactions: No Known Allergies Allergy (Verified 03/06/18 09:25) Past Medical History - General Information source: Patient - Social History Smoking Status: Current Every Day Smoker Cigarette use (# per day): Yes - 1/2-1 pack per day Chew tobacco use (# tins/day): No Smoking Education Provided: Yes - Woman Frequency of alcohol use: None Drug Abuse: None Lives with: Family Family History: Arthritis, COPD, DM, Malignancy, Thyroid Disfunction. denies: CAD, CVA, Hyperlipidemia, Hypertension Patient has suicidal ideation: No Patient has homicidal ideation: No - Past Medical History Cardiac Medical History: Reports: None Pulmonary Medical History: Reports: None EENT Medical History: Reports: None Neurological Medical History: Reports: None Endocrine Medical History: Reports: None Renal/ Medical History: Reports: None Malignancy Medical History: Reports: None GI Medical History: Reports: None Musculoskeletal Medical History: Reports None Skin Medical History: Reports None Psychiatric Medical History: Reports: Hx Anxiety, Hx Depression Traumatic Medical History: Reports: None Infectious Medical History: Reports: None Surgical Hx: Negative Past Surgical History: Reports: None - Immunizations Immunizations up to date: Yes Hx Diphtheria, Pertussis, Tetanus Vaccination: Yes Review of Systems - Review of Systems Constitutional: Fever, Recent illness EENT: Nose discharge, Throat pain - Itchy throat started yesterday Cardiovascular: No symptoms reported Respiratory: No symptoms reported Gastrointestinal: No symptoms reported Genitourinary: No symptoms reported Female Genitourinary: Vaginal discharge, Other - Intermittent cramping for 3 weeks Musculoskeletal: No symptoms reported Skin: No symptoms reported Hematologic/Lymphatic: No symptoms reported Neurological/Psychological: No symptoms reported -: Yes All other systems reviewed and negative Physical Exam - Vital signs Vitals: Temp Pulse Resp BP Pulse Ox 99.6 F 114 H 17 125/80 99 12/22/18 16:17 12/22/18 16:17 12/22/18 16:17 12/22/18 16:17 12/22/18 16:17 Interpretation: Normal - General General appearance: Appears well, Alert - HEENT Head: Normocephalic, Atraumatic Eyes: Normal Pupils: PERRL - Respiratory Respiratory status: No respiratory distress Chest status: Nontender Breath sounds: Normal Chest palpation: Normal - Cardiovascular Rhythm: Regular Heart sounds: Normal auscultation Murmur: No - Abdominal Inspection: Normal Distension: No distension Bowel sounds: Normal Tenderness: Tender - Very minimal pelvic pain. No: McBurney's point, Rosado's sign, Guarding, Rebound Organomegaly: No organomegaly Notes: Self GC chlamydia and wet mount swab completed in pit as well as a UA. - Back Back: Normal, Nontender - Extremities General upper extremity: Normal inspection, Nontender, Normal color, Normal ROM, Normal temperature General lower extremity: Normal inspection, Nontender, Normal color, Normal ROM, Normal temperature, Normal weight bearing. No: Taylor's sign - Neurological Neuro grossly intact: Yes Cognition: Normal Orientation: AAOx4 [place] Coma Scale Eye Opening: Spontaneous [place] Coma Scale Verbal: Oriented [place] Coma Scale Motor: Obeys Commands [place] Coma Scale Total: 15 Speech: Normal Motor strength normal: LUE, RUE, LLE, RLE Sensory: Normal - Psychological Associated symptoms: Normal affect, Normal mood - Skin Skin Temperature: Warm Skin Moisture: Dry Skin Color: Normal Course - Re-evaluation Re-evalutation: 12/22/18 17:25 Patient positive for bacterial vaginosis. Her GC chlamydia results will not come back for couple hours. Patient has elected to be treated in the emergency room and she will call for the results of her GC and chlamydia in a couple hours. Patient was given the phone number at my desk for her to call back in a couple hours. - Vital Signs Vital signs: Temp Pulse Resp BP Pulse Ox 98.7 F 68 18 111/67 99 12/22/18 17:24 12/22/18 17:24 12/22/18 17:24 12/22/18 17:24 12/22/18 17:24 - Laboratory Laboratory results interpreted by me: 12/22/18 16:44 Chlamydia DNA (PCR) DETECTED H Discharge - Discharge Clinical Impression: Bacterial vaginosis, Pelvic pain Condition: Stable Disposition: HOME, SELF-CARE Additional Instructions: VAGINITIS: Your exam shows that you have vaginitis, a vaginal infection. The infection can be caused by a many different organisms, including trichomonas or Gardnerella. The usual symptoms are vaginal irritation and discharge. The treatment is usually antibiotics such as Flagyl. Laboratory tests can determine which germ is responsible. Use the medication as prescribed. Because this infection can be transmitted sexually, your sexual partner may need to be checked and treated also. If your physician has not discussed this with you, please check before resuming sexual relations. If a culture shows gonorrhea or chlamydia, the infection must be reported to the health department. Call the doctor if you develop pelvic pain, fever, or problems with urination, or if you don't improve as expected. VAGINOSIS, BACTERIAL: Your exam shows you have bacterial vaginosis. This condition is due to an overgrowth of bacteria in the vagina. Symptoms may include vaginal itching or pain, a smelly discharge, and sometimes burning with urination. Normally this is not transmitted by sexual contact. Vaginosis can be treated with oral or topical antibiotics. Metronidazole (Flagyl) pills are usually effective. Topical vaginal creams include Cleocin and Metro-Gel. You should avoid sexual contact until your symptoms are all better. Call the doctor if you develop pelvic pain, fever, or problems with urination, or if you don't improve as expected. CEPHALOSPORINS: An antibiotic of the cephalosporin class has been prescribed. This type of antibiotic covers a wide variety of infections, including those of the skin, lungs, middle ear, and urinary tract. This antibiotic is somewhat similar to the penicillin family. In rare cases, a person who is allergic to penicillin will also be allergic to this medication. If you have had a severe allergic reaction to penicillin, and have not taken this antibiotic since that time, notify your doctor. Antibiotics which cover many germs ("broad spectrum" antibiotics) are more likely to cause diarrhea or "yeast" infections. Women prone to vaginal yeast problems may suffer an attack after taking this antibiotic. In infants, oral thrush (white spots "stuck" on the cheek) or yeast diaper rash may result. See your doctor if these problems occur. Call the doctor at once if you develop hives, itching, shortness of breath, or lightheadedness. AZITHROMYCIN: Azithromycin (Zithromax) is a broad spectrum antibiotic in the same class as erythromycin. It can treat a variety of bacterial infections, but is most frequently used for respiratory infections. Azithromycin is extremely long-lasting. It accumulates in body tissues and continues to kill bacteria for many days. In order to improve absorption, Azithromycin should be taken at least one hour before or two hours after a meal. It does not have the same strong tendency to upset the stomach as erythromycin and is usually very well tolerated. Patients who have had a rash or other true allergic reactions to erythromycin should not take this medication. Call if you develop gastrointestinal distress, severe diarrhea, rash, hives, itching, or shortness of breath. Ibuprofen Ibuprofen is an excellent, safe drug for pain control. In addition, it has potent antiinflammatory effects which are beneficial, especially in the treatment of injuries, arthritis, or tendonitis. It's best to take ibuprofen with food. Persons with ulcer disease or allergy to aspirin should notify their physician of this before taking ibuprofen. Take the medication exactly as prescribed. Don't take additional doses unless instructed to do so by your doctor. If you develop wheezing, shortness of breath, hives, faintness, stomach pain, vomiting, or dark black stools, return for re-evaluation at once. METRONIDAZOLE: Metronidazole (Flagyl) has been prescribed. This medication is used to kill a type of bacteria called anaerobes, and protozoan parasites such as trichomonas and Giardia. Flagyl often causes a metallic taste in the mouth and mild nausea. Do not use alcohol in any form with Flagyl (including alcohol in medication elixirs). Flagyl interacts with alcohol to cause flushing, palpitations, headache, stomach cramps, and vomiting. Do not use Flagyl if you are taking Antabuse (disulfiram). Call the doctor at once if you develop rash, shortness of breath, itching, or lightheadedness. You can call [phone] in about 2 hours and get the results of your gonorrhea chlamydia test. You are being treated for these at this time with the Rocephin and azithromycin. You have also been given Flagyl for your bacterial vaginosis. Please take the Flagyl until it is completed. No alcohol at all while you are on this medication. Flagyl will cause nausea and vomiting FOLLOW-UP CARE: If you have been referred to a physician for follow-up care, call the physicians office for an appointment as you were instructed or within the next two days. If you experience worsening or a significant change in your symptoms, notify the physician immediately or return to the Emergency Department at any time for re-evaluation. Prescriptions: Metronidazole [Flagyl 500 mg Tablet] 500 mg PO BID #14 tablet Forms: Smoking Cessation Education Referrals: [facility] [Provider Group] - Follow up as needed
[2018-12-22 17:23] VITALS: BP 111/67
[2018-12-22 18:34] LABS: CHLAM PCR DETECTED (NOT DETECT); GON PCR NOT DETECTED (NOT DETECT)
== END 2018-12-22 18:00 | disposition home or self-care (01) ==
LOC: ER 16:07
DX: N30.01 Acute cystitis with hematuria (principal); F17.210 Nicotine dependence, cigarettes, uncomplicated; I10 Essential (primary) hypertension; E11.9 Type 2 diabetes mellitus without complications; Z87.442 Personal history of urinary calculi; Z86.14 Personal history of Methicillin resistant Staphylococcus aureus infection; Z90.49 Acquired absence of other specified parts of digestive tract
CPT/HCPCS: 99284; 96372; 87210; 81025; 81001; 87491; 87591; J3490; J0696

== ENCOUNTER 2019-01-14 13:30 | Emergency (ER) | payer MEDICAID, OTHER ==
--- NOTE | 2019-01-14 14:06 | ER Document Report ---
ED Medical Screen (RME) - General Chief Complaint: Headache Stated Complaint: HEADACHES Information source: Patient Notes: 23 years old female with a history of pseudotumor tumor cerebri, presents with headache. She has not been taking Diamox for a year and a half. She is also having dizziness. TRAVEL OUTSIDE OF THE [place] IN LAST 30 DAYS: No - Related Data Allergies/Adverse Reactions: No Known Allergies Allergy (Verified 03/06/18 09:25) Past Medical History - Social History Chew tobacco use (# tins/day): No Frequency of alcohol use: None Drug Abuse: None Renal/ Medical History: Denies: Hx Peritoneal Dialysis Psychiatric Medical History: Reports: Hx Anxiety, Hx Depression - Immunizations Immunizations up to date: Yes Hx Diphtheria, Pertussis, Tetanus Vaccination: Yes Physical Exam - Vital signs Vitals: Temp Pulse Resp BP Pulse Ox 98.9 F 117 H 12 117/73 97 01/14/19 13:37 01/14/19 13:37 01/14/19 13:37 01/14/19 13:37 01/14/19 13:37 Course - Vital Signs Vital signs: Temp Pulse Resp BP Pulse Ox 98.9 F 117 H 12 117/73 97 01/14/19 13:37 01/14/19 13:37 01/14/19 13:58 01/14/19 13:37 01/14/19 13:37
--- NOTE | 2019-01-14 14:49 | RADIOLOGY REPORT (SQ) ---
EXAM DESCRIPTION: CT HEAD WITHOUT COMPLETED DATE/TIME: 01/14/2019 2:21 pm REASON FOR STUDY: Headache COMPARISON: None. TECHNIQUE: Axial images acquired through the brain without intravenous contrast. Images reviewed wi th bone, brain and subdural windows. Additional sagittal and coronal reconstructions were generated. Images stored on PACS. All CT scanners at this facility use dose modulation, iterative reconstruction, and/or weight based d osing when appropriate to reduce radiation dose to as low as reasonably achievable (ALARA). [facility]: Dose Right [facility]: CareDose [facility]: Dose Right [facility]: Teradose 4D [facility]: Red-M Group RADIATION DOSE: CT Rad equipment meets quality standard of care and radiation dose reduction techniq ues were employed. CTDIvol: 53.2 mGy. DLP: 1070 mGy-cm. mGy. LIMITATIONS: None. FINDINGS: VENTRICLES: Normal size and contour. CEREBRUM: No masses. No hemorrhage. No midline shift. No evidence for acute infarction. Normal gra y/white matter differentiation. No areas of low density in the white matter. CEREBELLUM: No masses. No hemorrhage. No alteration of density. No evidence for acute infarction. EXTRAAXIAL SPACES: No fluid collections. No masses. ORBITS AND GLOBE: No intra- or extraconal masses. Normal contour of globe without masses. CALVARIUM: No fracture. PARANASAL SINUSES: No fluid or mucosal thickening. SOFT TISSUES: No mass or hematoma. OTHER: No other significant finding. IMPRESSION: NORMAL BRAIN CT WITHOUT CONTRAST. EVIDENCE OF ACUTE STROKE: NO. COMMENT: Quality ID # [id number]: Final reports with documentation of one or more dose reduction techniques (e.g., Automated exposure control, adjustment of the mA and/or kV according to patient size, use of iterative reconstruction technique) TECHNICAL DOCUMENTATION: JOB ID: [id number] [employer]- All Rights Reserved Reading location - IP/workstation name: [email or web address]
[2019-01-14 15:04] LABS: ABSOLUTE BASOPHILS # (AUTO) 0.1 10^3/uL (0.0-0.2); ABSOLUTE LYMPHOCYTES (AUTO) 1.4 10^3/uL (0.5-4.7); ABSOLUTE MONOCYTES (AUTO) 0.6 10^3/uL (0.1-1.4); ABSOLUTE NEUT (AUTO) 9.3 10^3/uL (1.7-8.2); BASOPHILS % (AUTO) 0.5 % (0-2); EOSINOPHILS % (AUTO) 0.2 % (0-6); HEMATOCRIT 40.9 % (36.0-47.0); HEMOGLOBIN 13.8 g/dL (12.0-15.5); LYMPHOCYTES % (AUTO) 12.2 % (13-45); MEAN CORPUSCULAR HEMOGLOBIN 28.6 pg (27.0-33.4); MEAN CORPUSCULAR HGB CONC 33.7 g/dL (32.0-36.0); MEAN CORPUSCULAR VOLUME 85 fl (80-97); MONOCYTES % (AUTO) 4.9 % (3-13); PLATELET COUNT 306 10^3/uL (150-450); RED BLOOD COUNT 4.82 10^6/uL (3.72-5.28); RED CELL DISTRIBUTION WIDTH 13.7 % (11.5-14.0); SEGMENTED NEUTROPHILS % (AUTO) 82.2 % (42-78); TOTAL CELLS COUNTED % (AUTO) 100 %; WHITE BLOOD COUNT 11.3 10^3/uL (4.0-10.5)
[2019-01-14] MEDS ORDERED: NORMAL SALINE 1000 ML 1,000 ML IV ONE (15:26)
[2019-01-14] MEDS ORDERED: DIPHENHYDRAMINE HCL 50 MG/ML VIAL IV ONE (15:27)
[2019-01-14] MEDS ORDERED: KETOROLAC TROMETHAMINE INJ/PF 30 MG/1 ML SDV IV ONE (15:27)
[2019-01-14] MEDS ORDERED: PROCHLORPERAZINE EDISYLATE INJ 10 MG/2 ML VIAL IV ONE (15:27)
--- NOTE | 2019-01-14 15:30 | ER Document Report ---
ED Headache - General Chief Complaint: Headache Stated Complaint: HEADACHES Time Seen by Provider: 01/14/19 14:06 Primary Care Provider: [facility] [Provider Group] - Follow up tomorrow TAY GRAY MD [NO LOCAL MD] - Follow up tomorrow Mode of Arrival: Ambulatory Information source: Patient Notes: Patient complains of generalized headache pain for the past 4 weeks. Patient states that she has occasional blurred vision neck and back pain. Patient does report nausea but denies any vomiting. Patient denies any fever or head injury. Patient states she does have a history of pseudotumor cerebri diagnosed 3 years ago. Patient states she took Diamox for about 6 months and then was taken off the medication as she was told that he was in remission. Patient has not taken Diamox for about 2 years now. Patient has not followed up with her neurologist. Patient has not taken any pain medication because she feels that it does not help her symptoms. TRAVEL OUTSIDE OF THE [place] IN LAST 30 DAYS: No - HPI Patient complains to provider of: Headache Patient reports: Other - History of pseudotumor cerebri Onset: Other - 4 weeks Onset was: Gradual Timing: Still present Quality of pain: Achy Pain Level: 4 Context: denies: Head injury, Meningitis exposure Associated symptoms: Double/blurred vision - Blurred vision, Nausea/vomiting. denies: Chills, Confusion, Fever, Photophobia, Stiff neck - Nausea Similar symptoms previously: Yes Recently seen / treated by doctor: No - Related Data Allergies/Adverse Reactions: No Known Allergies Allergy (Verified 03/06/18 09:25) Past Medical History - General Information source: Patient - Social History Smoking Status: Current Every Day Smoker Chew tobacco use (# tins/day): No Frequency of alcohol use: None Drug Abuse: None Occupation: None Lives with: Family Family History: Arthritis, COPD, DM, Malignancy, Thyroid Disfunction. denies: CAD, CVA, Hyperlipidemia, Hypertension Patient has suicidal ideation: No Patient has homicidal ideation: No Neurological Medical History: Reports: Other - Pseudotumor cerebri Renal/ Medical History: Denies: Hx Peritoneal Dialysis Psychiatric Medical History: Reports: Hx Anxiety, Hx Depression Surgical Hx: Negative - Immunizations Immunizations up to date: Yes Hx Diphtheria, Pertussis, Tetanus Vaccination: Yes Review of Systems - Review of Systems Constitutional: No symptoms reported. denies: Fever, Recent illness EENT: Blurred vision Cardiovascular: No symptoms reported Respiratory: No symptoms reported. denies: Cough Gastrointestinal: Nausea. denies: Abdominal pain, Vomiting Genitourinary: No symptoms reported Female Genitourinary: No symptoms reported Musculoskeletal: Back pain, Neck pain Skin: No symptoms reported. denies: Rash Hematologic/Lymphatic: No symptoms reported Neurological/Psychological: Headaches. denies: Confusion, Weakness Physical Exam - Vital signs Vitals: Temp Pulse Resp BP Pulse Ox 98.9 F 117 H 12 117/73 97 01/14/19 13:37 01/14/19 13:37 01/14/19 13:37 01/14/19 13:37 01/14/19 13:37 - General General appearance: Appears well, Alert In distress: None - HEENT Head: Normocephalic, Atraumatic Eyes: Normal Conjunctiva: Normal Extraocular movements intact: Yes Eyelashes: Normal Pupils: PERRL Visual acuity- Right eye: 20-25 Visual acuity- Left eye: 20-25 Visual acuity- Both eyes: 20-25 Corrective lenses worn: Yes Fundascopic: Normal Nerve palsy: No Ears: Normal External canal: Normal Nasal: Normal Mouth/Lips: Normal Neck: Brudzinski, Supple, Other - Posterior cervical midline tenderness, bilateral trapezius muscle tenderness. No: Lymphadenopathy, Meningismus - Respiratory Respiratory status: No respiratory distress Chest status: Nontender Breath sounds: Normal. No: Rales, Rhonchi, Stridor Chest palpation: Normal - Cardiovascular Rhythm: Tachycardia Heart sounds: S1 appreciated, S2 appreciated Murmur: No - Abdominal Inspection: Normal Distension: No distension - Back Back: Vertebra tenderness - Patient with thoracic and lumbar midline tenderness, no step-off or deformity - Extremities General upper extremity: Normal inspection, Normal ROM General lower extremity: Normal inspection, Normal ROM - Neurological Neuro grossly intact: Yes Cognition: Normal [place] Coma Scale Eye Opening: Spontaneous [place] Coma Scale Verbal: Oriented [place] Coma Scale Motor: Obeys Commands [place] Coma Scale Total: 15 - Psychological Associated symptoms: Normal affect, Normal mood - Skin Skin Temperature: Warm Skin Moisture: Dry Skin Color: Normal Course - Re-evaluation Re-evalutation: 01/14/19 15:[address] De La Rosa regarding patient presentation and diagnostic evaluation. States that head CT should be able to rule out any problems related to pseudotumor cerebri. Inquired as to whether or not patient needs diagnostic LP with opening pressure to diagnose a recurrence of her pseudotumor. Recommends consultation with radiologist to determine what type of MRI imaging patient may need. Consulted with Dr. Shepard who was advised the patient's history and presenting symptoms. Discussed patient's minimally elevated white blood cell count with a shift. Dr. Shepard recommends obtaining LP at this time and outpatient neurology follow-up, does not recommend MRI imaging at present. 01/14/19 17:33 Patient returned to room after having LP under fluoroscopy. Opening pressure was 20 mmHg, patient states headache pain is resolved at this time and she feels better. Patient without any intracranial hypertension or papilledema. Patient without any neurologic deficit. Visual acuity was 20/25 OS, OU, OD. Awaiting results of CSF fluid testing at this time. Patient denies any needs at present. 01/14/19 18:26 Results of patient's LP as well as CSF fluid analysis reviewed with Dr. De La Rosa. No concern for meningitis, encephalitis or pseudotumor cerebri at this time. Patient's headache is resolved. Suspect that patient's headache likely resolved as a result of the medications that were given her here tonight. Patient encou raged to follow-up with neurology as well as ophthalmology for further evaluation. Patient advised that she will need to remain supine as much as she can tonight until tomorrow morning to prevent post spinal headache worsening. The patient presents with headache without signs of CERTIFIED PROFESSIONAL ERGONOMIST bleed, stroke, infection, or other serious etiology. The patient is neurologically intact. Given the extremely low risk of these diagnoses further testing and evaluation for these possibilities does not appear to be indicated at this time. The patient has been instructed to return if the symptoms worsen or change in any way. - Vital Signs Vital signs: Temp Pulse Resp BP Pulse Ox 98.4 F 68 18 100/67 100 01/14/19 18:48 01/14/19 18:48 01/14/19 18:48 01/14/19 18:48 01/14/19 18:48 - Laboratory Result Diagrams: 01/14/19 14:35 Laboratory results interpreted by me: 01/14/19 14:35 WBC 11.3 H Seg Neutrophils % 82.2 H Lymphocytes % 12.2 L Absolute Neutrophils 9.3 H - Diagnostic Test Radiology reviewed: Reports reviewed Discharge - Discharge Clinical Impression: Headache Qualifiers: Headache type: unspecified Headache chronicity pattern: unspecified pattern Intractability: not intractable Qualified Code(s): R51 - Headache Condition: Stable Disposition: HOME, SELF-CARE Instructions: Intravenous Compazine for Headaches ([facility]), Use of Diphenhydramine, Headache ([facility]) Additional Instructions: Return immediately for any new or worsening symptoms Followup with your primary care provider, call tomorrow to make a followup appointment Do not take the Klonopin if you are taking the headache medication Fioricet, only take one medication of the other to avoid adverse interactions. Prescriptions: Butalb/Acetaminophen/Caffeine [Fioricet (50-325-40 mg) Tablet] 1 - 2 tab PO Q4H PRN #12 each PRN Reason: Promethazine HCl [Phenergan 25 mg Tablet] 25 mg PO Q6H PRN #10 tablet PRN Reason: Forms: Smoking Cessation Education Referrals: TAY GRAY MD [NO LOCAL MD] - Follow up tomorrow [facility] [Provider Group] - Follow up tomorrow
[2019-01-14 16:47] LABS: CHLAM PCR NOT DETECTED (NOT DETECT); GON PCR NOT DETECTED (NOT DETECT)
--- NOTE | 2019-01-14 17:12 | RADIOLOGY REPORT (SQ) ---
EXAM DESCRIPTION: LUMBAR PUNCTURE; FLUORO/NEEDLE PLACEMENT COMPLETED DATE/TIME: 01/14/2019 4:57 pm REASON FOR STUDY: ZURITA, hx of pseudotumor cerebri COMPARISON: None. FLUOROSCOPY TIME: 20 seconds 1 digital radiographic images saved to PACS. TECHNIQUE: Fluoroscopic guided lumbar puncture. LIMITATIONS: None. PROCEDURE: After written consent and assessment were obtained, the patient was brought into the fluo roscopy room and placed prone on the table. The patient's lower back was prepped in a sterile fashio n and an entry site was selected under live fluoroscopic guidance. The entry site was anesthetized wi th 4 ML OF 1% lidocaine. A 20 gauge needle was advanced through the skin and into the thecal sac at t he left paracentral L2-3 level. After approximately 19 ml was drained, the needle was removed and a sterile bandage was placed of the site. Specimens were sent to the lab for testing. A fluoroscopic spot image was saved to PACS confirming level access. FINDINGS: Clear CSF Opening pressure 20 cm of water. Closing pressure 13 cm of water. IMPRESSION: Lumbar puncture under fluoroscopy. No immediate complication. COMMENT: Patient medication list reviewed: Yes- Quality ID# [id number]:Eligible professional attests to doc umenting in the medical record they obtained, updated, or reviewed the patient's current medications. . Quality ID 145: Final reports for procedures using fluoroscopy that document radiation exposure sanna madhu, or exposure time and number of fluorographic images (if radiation exposure indices are not avail able) TECHNICAL DOCUMENTATION: JOB ID: [id number] [employer]- All Rights Reserved Reading location - IP/workstation name: [email or web address]
[2019-01-14 17:52] LABS: GLUCOSE,CSF 60 mg/dL (40-70); PROTEIN,CSF 36 mg/dL (12-60)
[2019-01-14 18:07] LABS: APPEARANCE ALL TUBES CLEAR; COLOR ALL TUBES COLORLESS; CSF TUBE NUMBER 1
[2019-01-14 18:08] LABS: WHITE BLOOD CELL,CSF 0 /uL (0-5)
[2019-01-14 18:09] LABS: RED BLOOD CELL,CSF 0 /uL (0-10)
[2019-01-14 18:10] LABS: COLOR TUBE 4 COLORLESS; CSF TUBE NUMBER 4
[2019-01-14 18:11] LABS: APPEARANCE ALL TUBES CLEAR
[2019-01-14 18:13] LABS: RED BLOOD CELL,CSF 0 /uL (0-10)
[2019-01-14 18:14] LABS: WHITE BLOOD CELL,CSF 0 /uL (0-5)
[2019-01-14 18:49] VITALS: BP 100/67
== END 2019-01-14 18:52 | disposition home or self-care (01) ==
LOC: ER 13:30
DX: R51 Headache (principal); H53.8 Other visual disturbances; R11.2 Nausea with vomiting, unspecified; F17.200 Nicotine dependence, unspecified, uncomplicated
CPT/HCPCS: 99284; 96372; 96361; 96374; 36415; 87070; 87205; 85025; 89050; 82945; 84157; 81025; 87491; 87591; 77002; 62270; 70450; J1200; J0780; J7030

== ENCOUNTER 2019-06-16 04:44 | Emergency (ER) | payer SELFPAY ==
[2019-06-16 06:01] LABS: APPEARANCE,URINE CLOUDY; BILIRUBIN,URINE NEGATIVE (NEGATIVE); COLOR,URINE YELLOW; GLUCOSE, URINE NEGATIVE (NEGATIVE); KETONES,URINE NEGATIVE (NEGATIVE); LEUKOCYTE ESTERASE,URINE LARGE (NEGATIVE); NITRITE,URINE NEGATIVE (NEGATIVE); PROTEIN,URINE 30 mg/dL (NEGATIVE); UROBILINOGEN,URINE NEGATIVE mg/dL (<2.0)
[2019-06-16] MEDS ORDERED: CEPHALEXIN 500 MG CAPSULE PO ONE (06:36)
--- NOTE | 2019-06-16 06:38 | ER Document Report ---
HPI - HPI Time Seen by Provider: 06/16/19 05:14 Pain Level: 4 Notes: Patient is an otherwise healthy 24-year-old female presenting to the emergency department chief complaint of dysuria, urinary frequency and urgency. She reports symptoms started yesterday. She denies any fever. She does report low back pain but denies any abdominal pain or flank pain. - REPRODUCTIVE Reproductive: DENIES: : - DERM Skin Color: Normal Past Medical History - General Information source: Patient - Social History Smoking Status: Current Every Day Smoker Chew tobacco use (# tins/day): No Frequency of alcohol use: Social Drug Abuse: None Family History: Arthritis, COPD, DM, Malignancy, Thyroid Disfunction. denies: CAD, CVA, Hyperlipidemia, Hypertension Patient has suicidal ideation: No Patient has homicidal ideation: No Renal/ Medical History: Denies: Hx Peritoneal Dialysis Psychiatric Medical History: Reports: Hx Anxiety, Hx Depression Surgical Hx: Negative - Immunizations Immunizations up to date: Yes Hx Diphtheria, Pertussis, Tetanus Vaccination: Yes Vertical Provider Document - CONSTITUTIONAL Notes: PHYSICAL EXAMINATION: GENERAL: Well-appearing, well-nourished and in no acute distress. HEAD: Atraumatic, normocephalic. EYES: Pupils equal round and reactive to light, extraocular movements intact, conjunctiva are normal. ENT: Nares patent, oropharynx clear without exudates. Moist mucous membranes. NECK: Normal range of motion, supple without lymphadenopathy LUNGS: Breath sounds clear to auscultation bilaterally and equal. No wheezes rales or rhonchi. HEART: Regular rate and rhythm without murmurs ABDOMEN: Soft, nontender, nondistended abdomen. No guarding, no rebound. No masses appreciated. Female : No CVA tenderness. Musculoskeletal: Normal range of motion, no pitting or edema. No cyanosis. NEUROLOGICAL: Cranial nerves grossly intact. Normal speech, normal gait. Normal sensory, motor exams PSYCH: Normal mood, normal affect. SKIN: Warm, Dry, normal turgor, no rashes or lesions noted. - INFECTION CONTROL TRAVEL OUTSIDE OF THE [place] IN LAST 30 DAYS: No Course - Re-evaluation Re-evalutation: Laboratory 06/16/19 04:49 Urine Color YELLOW Urine Appearance CLOUDY Urine pH 6.0 Ur Specific [place] 1.020 Urine Protein 30 H Urine Glucose (UA) NEGATIVE Urine Ketones NEGATIVE Urine Blood LARGE H Urine Nitrite NEGATIVE Urine Bilirubin NEGATIVE Urine Urobilinogen NEGATIVE Ur Leukocyte Esterase LARGE H Urine WBC (Auto) >182 Urine RBC (Auto) 127 Urine WBC Clumps FEW Squamous Epi Cells Auto 3 U Non-Squamous Epis Auto 2 Urine Mucus (Auto) FEW Urine Ascorbic Acid NEGATIVE Urinalysis as described above. Patient will be started on cephalexin. Urine culture pending. Patient understands ED return precautions. The patient's emergency department workup and current diagnosis were explained to the patient and or family. Follow-up instructions were provided. Medications if prescribed were discussed. Instructions for when to return to the emergency department including specific worrisome symptoms were discussed with the patient and/or family. - Vital Signs Vital signs: Temp Pulse Resp BP Pulse Ox 98.1 F 93 18 126/82 H 99 06/16/19 04:44 06/16/19 04:44 06/16/19 04:44 06/16/19 04:44 06/16/19 04:44 - Laboratory Laboratory results interpreted by me: 06/16/19 04:49 Urine Protein 30 H Urine Blood LARGE H Ur Leukocyte Esterase LARGE H Discharge - Discharge Clinical Impression: Urinary tract infection Condition: Stable Disposition: HOME, SELF-CARE Additional Instructions: Your urine shows findings consistent with a urinary tract infection. Please take all the antibiotics as directed even if your symptoms have improved. Please follow-up with your primary care physician as needed. Return to emergency room if you develop fever >101F, persistent vomiting, become lethargic, have severe pain in your sides, or any other symptoms that are concerning to you. Prescriptions: Cephalexin [Cephalexin 500 MG Tablet] 1 tab PO BID #14 tablet Forms: Return to Work
[2019-06-16 06:51] VITALS: BP 121/74
== END 2019-06-16 06:51 | disposition home or self-care (01) ==
LOC: ER 04:44
DX: N39.0 Urinary tract infection, site not specified (principal); R30.0 Dysuria; R39.15 Urgency of urination; R35.0 Frequency of micturition; M54.5 Low back pain; F17.200 Nicotine dependence, unspecified, uncomplicated
CPT/HCPCS: 81001; 87086; 87088; 87186; 99283

== ENCOUNTER 2020-11-28 10:58 | Emergency (ER) | payer SELFPAY ==
[2020-11-28 11:07] VITALS: BP 122/76
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
--- NOTE | 2020-11-28 12:04 | RADIOLOGY REPORT (SQ) ---
EXAM DESCRIPTION: KNEE LEFT 4 VIEW IMAGES COMPLETED DATE/TIME: 11/28/2020 10:45 am REASON FOR STUDY: fall COMPARISON: None. NUMBER OF VIEWS: Four views. TECHNIQUE: AP, lateral, and both oblique radiographic images acquired of the left knee. LIMITATIONS: None. FINDINGS: MINERALIZATION: Normal. BONES: No acute fracture or dislocation. No worrisome bone lesions. JOINT: No effusion. SOFT TISSUES: No soft tissue swelling. No radio-opaque foreign body. OTHER: No other significant finding. IMPRESSION: NEGATIVE STUDY OF THE LEFT KNEE. NO RADIOGRAPHIC EVIDENCE OF ACUTE INJURY. TECHNICAL DOCUMENTATION: JOB ID: [id number] [employer]- All Rights Reserved Reading location - IP/workstation name: [email or web address]
[2020-11-28] MEDS ORDERED: IBUPROFEN 600 MG TABLET PO ONE (12:05)
== END 2020-11-28 12:34 | disposition home or self-care (01) ==
LOC: ER 10:58
DX: S80.02XA Contusion of left knee, initial encounter (principal); M25.562 Pain in left knee; W01.0XXA Fall on same level from slipping, tripping and stumbling without subsequent striking against object, initial encounter
CPT/HCPCS: 99283